=== PATIENT | female | born 1990 | race American Indian/Alaskan Native ===

== ENCOUNTER 2016-11-22 11:47 | Emergency (ER) | payer OTHER ==
[2016-11-22 11:54] VITALS: BP 118/81
--- NOTE | 2016-11-22 13:28 | XRay Report ---
RIGHT ANKLE, 3 views: History: right ankle pain. Findings: Mild soft tissue swelling is identified. No acute osseous abnormality or joint pathology is identified. The fifth metatarsal base is intact. Impression: Soft tissue swelling. No acute osseous injury.
[2016-11-22] MEDS ORDERED: MOTRIN PO ONE (14:04)
--- NOTE | 2016-11-22 15:04 | Emergency Department Report ---
ED Lower Extremity HPI - General Chief Complaint: Extremity Injury, Lower Stated Complaint: SPRUNG R ANKLE Time Seen by Provider: 11/22/16 12:45 Source: patient Mode of arrival: Wheelchair Limitations: No Limitations - History of Present Illness Initial Comments: 26 year old female with a PMHx of PCOS and depression presents to the ED via wheelchair c/o right ankle pain that began last night. Patient states that she fell in the tub and subsequently injured her right ankle. Associated symptoms right anterior and lateral edema and minimal erythema, but she denies loss of consciousness, right leg and calf pain, numbness, tingling, and fever/chills. Patient is compliant with Metformin Rx. Uses tobacco products occasionally, but denies EtOH consumption and illicit drug use. She denies having suicidal ideation, current depression, and violent intentions. NKDA. CLARK Complaint: ankle injury (right) -: Last night Time: 23:00 Injury: Ankle: Right (anterior and lateral) Type of Injury: unknown Place: home (in the tub) Severity: moderate Severity scale (0 -10): 10 Improves With: immobilization Context: fall (in the tub) Other Symptoms: other (right ankle swelling and minimal erythema) Associated Symptoms: swelling, unable to bear weight. denies: numbness, tingling, other (loss of consciousness, fever/chills, right leg/calf pain) - Related Data Previous Rx's Medication Instructions Recorded Last Taken Type Naproxen [Naprosyn TAB] 375 mg PO BID PRN #10 tablet 11/22/16 Unknown Rx Allergies Allergy/AdvReac Type Severity Reaction Status Date / Time No Known Allergies Allergy Verified 11/22/16 11:56 ED Review of Systems ROS: Stated complaint: SPRUNG R ANKLE Other details as noted in HPI This 26-year-old female that presents with right ankle swelling that happened a couple last night. Patient denies any head trauma. Denies CP, SOB, dizziness, n /v. Comment: All other systems reviewed and negative Constitutional: denies: chills, fever, other (tingling) Eyes: denies: eye pain, eye discharge, vision change ENT: denies: ear pain, throat pain Respiratory: denies: cough, shortness of breath, wheezing Cardiovascular: denies: chest pain, palpitations Endocrine: no symptoms reported Gastrointestinal: denies: abdominal pain, nausea, diarrhea Genitourinary: denies: urgency, dysuria, discharge Musculoskeletal: joint swelling (right anterior and lateral ankle), other ( right ankle pain, but denies right leg/calf pain). denies: back pain, arthralgia, myalgia Skin: other (minimal right ankle erythema). denies: rash, lesions Neurological: denies: headache, weakness, numbness, paresthesias, vertigo Psychiatric: suicidal thoughts (at this time the patient denies any anxiety or depression or suicidal thoughts.). denies: anxiety, depression ED Past Medical Hx - Past Medical History Previous Medical History?: No - Surgical History Past Surgical History?: No - Social History Smoking Status: Never Smoker Substance Use Type: None - Medications Home Medications: Home Medications Medication Instructions Recorded Confirmed Last Taken Type Naproxen [Naprosyn TAB] 375 mg PO BID PRN #10 tablet 11/22/16 Unknown Rx ED Physical Exam - General Limitations: No Limitations General appearance: alert, in no apparent distress - Head Head exam: Present: atraumatic, normocephalic - Eye Eye exam: Present: normal appearance, EOMI - ENT ENT exam: Present: normal exam, mucous membranes moist - Neck Neck exam: Present: normal inspection, full ROM. Absent: lymphadenopathy - Respiratory Respiratory exam: Present: normal lung sounds bilaterally. Absent: respiratory distress - Cardiovascular Cardiovascular Exam: Present: regular rate, normal rhythm - GI/Abdominal GI/Abdominal exam: Present: soft. Absent: distended - Extremities Exam Extremities exam: Present: tenderness (right anterior and lateral ankle), normal capillary refill, pedal edema (right ankle), joint swelling (right anterior and lateral ankle). Absent: full ROM (limited right ankle dorsiflexion , plantar flexion, and [id number] motion), calf tenderness - Expanded Lower Extremity Exam Right Hip exam: Present: normal inspection, full ROM Upper Leg exam: Present: normal inspection, full ROM Knee exam: Present: normal inspection, full ROM Lower Leg exam: Present: normal inspection, full ROM. Absent: tenderness, swelling Ankle exam: Present: tenderness (right anterior and lateral ankle), swelling ( right anterior and lateral ankle), erythema (minimal right ankle erythema). Absent: full ROM (limited dorsiflexion, plantar flexion, and [id number] motion ), ecchymosis, deformity, dislocation Foot/Toe exam: Present: normal inspection, full ROM. Absent: tenderness, swelling, erythema Neuro vascular tendon exam: Present: no vascular compromise. Absent: pulse deficit, abnormal cap refill, motor deficit, sensory deficit, tendon deficit, pallor Gait: Positive: unable to bear weight - Back Exam Back exam: Present: normal inspection, full ROM - Neurological Exam Neurological exam: Present: alert, oriented X3 - Psychiatric Psychiatric exam: Present: normal affect, normal mood - Skin Skin exam: Present: warm, dry, intact, erythema (minimal erythema to right ankle ). Absent: ecchymosis ED Course Vital Signs 11/22/16 11:52 Temperature 98.5 F Pulse Rate 99 H Respiratory 16 Rate Blood Pressure 118/81 O2 Sat by Pulse 100 Oximetry - Reevaluation(s) Reevaluation #1: 11/22/16 15:31 Prescribed ibuprofen 600 mg by mouth. Patient tolerated well. The pain went from 10 to a #4. ED Lower Extremity MDM - Medical Decision Making ED course: 26-year-old female presents with right ankle sprain. 1- patient received ibuprofen 600 mg by mouth. Pain level went from 10 to a 4. 2- patient received ice pack for the right ankle. Instructed the patient to elevate ankle. 3- instruct the patient to RICE affected limb. 4- prescribe naproxen when necessary for pain. 5- at this time the patient is icing any sign of distress or toxic appearance. 6- patient aware to care plan and diagnosis. 7- recommended patient to follow up with orthopedic doctor in 3-5 days. 8- x-ray of right ankle shows; soft tissue swelling. No acute ossesous injury. Read by Dr. Kaden Sandoval MD. Critical care attestation.: If time is entered above; I have spent that time in minutes in the direct care of this critically ill patient, excluding procedure time. ED Disposition Clinical Impression: Ankle sprain Disposition: DISCHARGED TO HOME OR SELFCARE Is pt being admited?: No Does the pt Need Aspirin: No Condition: Stable Instructions: Naproxen (By mouth), Ankle Sprain (ED), RICE Therapy (ED) Additional Instructions: Please follow up with the orthopedic doctor in 3-5 days. Please rest ice compression and elevation of your right foot. If symptoms of numbness or tingling sensations or worse swelling or pain is reported back to emergency room. Prescriptions: Naproxen [Naprosyn TAB] 375 mg PO BID PRN #10 tablet PRN Reason: Pain Referrals: PRIMARY CAREMD [Primary Care Provider] - 3-5 Days JEREMY RINCON MD [Staff Physician] - 3-5 Days [facility] [Outside] - 3-5 Days [facility] [Outside] - 3-5 Days
== END 2016-11-22 15:20 | disposition home or self-care (01) ==
LOC: ED 11:47
DX: S93.401A Sprain of unspecified ligament of right ankle, initial encounter (principal); W18.30XA Fall on same level, unspecified, initial encounter; Y93.9 Activity, unspecified; Y92.9 Unspecified place or not applicable; Y99.9 Unspecified external cause status
CPT/HCPCS: 99283